=== PATIENT | female | born 1985 | race Caucasian/White ===

== ENCOUNTER → 2016-11-12 | Outpatient (REF) ==
[~2016-11-12] MED LIST: IBU600 MG PO; MOTRIN 600600 MG/TAB PO; PERCOCET 325 MG1 TA2 PO; PRENATAL1 TA1 PO; SYNTHROID0.088 MG/T PO; SYNTHROID0.1 MG/TAB; SYNTHROID0.1 MG/TAB PO
== END ==
LOC: WSOH 12:50
DX: Z23 Encounter for immunization (principal)
CPT/HCPCS: A9270-GY

== ENCOUNTER 2016-12-20 09:15 | Inpatient (IN) | payer OTHER ==
[~2016-12-20] VITALS: Ht 160 cm; Wt 80.9 kg
[~2016-12-20 09:15] MED LIST changes: -IBU600 MG PO; -SYNTHROID0.1 MG/TAB
[2017-01-02] VITALS (41 sets, daily range): BP systolic 108–156; BP diastolic 58–98; PULSE 71–126; TEMP 97.3–98
[2017-01-02] MEDS ORDERED: SYNTHROID0.1 MG/TAB (05:38)
[2017-01-02 06:07] LABS: BASO % 0.4 % (0.0-2.0); EOS # 0.1 (0.0-0.7); EOS % 1.4 % (0-4.0); GRAN # 5.6 (1.4-6.5); GRAN % 69.1 % (42.2-75.2); HEMATOCRIT 31.2 % (37.0-47.0); HEMOGLOBIN 9.7 g/dl (12.5-16.0); LYMPH # 1.8 (1.2-3.4); LYMPH % 21.9 % (20.0-51.0); MEAN CELL VOLUME 79 fl (80.0-100.0); MEAN CORPUSCULAR HEMOGLOBIN 24 pg (27.0-31.0); MEAN CORPUSCULAR HGB CONC 31 g/dl (33.0-37.0); MEAN PLATELET VOLUME 11.9 fl (7.4-10.4); MONO # 0.6 (0.1-0.6); MONO % 6.8 % (1.7-9.3); PLATELET COUNT 199 K/mm3 (130-400); RED BLOOD COUNT 3.96 M/mm3 (4.10-5.30); REDCELL DISTRIBUTION WIDTH-CV 13.8 % (11.5-14.5); WHITE BLOOD COUNT 8.1 K/mm3 (4.8-10.8)
[2017-01-03 00:40] VITALS: BP 102/58; PULSE 80; TEMP 97.5
[2017-01-03 03:55] VITALS: BP 128/80; PULSE 87; TEMP 97.9
[2017-01-03 06:45] VITALS: BP 129/81; PULSE 93; TEMP 97.7
[2017-01-03 07:26] LABS: HEMATOCRIT 32.8 % (37.0-47.0); HEMOGLOBIN 10.2 g/dl (12.5-16.0)
[2017-01-03] MEDS ORDERED: PERCOCET 325 MG1 TA2 PO (09:06)
[2017-01-03] MEDS ORDERED: IBU600 MG PO (09:06)
== END 2017-01-03 16:30 | disposition home or self-care (01) | DRG 775 ==
LOC: LDRO 09:15 → EDSTATUS 14:33 → LDR 01-01 14:36 → OB 01-02 04:55 → LDR 01-02 04:55 → OB 01-02 16:00
PROVIDERS: Obstetrics & Gynecology
PROC: 10E0XZZ Delivery of Products of Conception, External Approach (ICD-10-PCS; principal; 2017-01-02)
PROC: 0KQM0ZZ Repair Perineum Muscle, Open Approach (ICD-10-PCS; 2017-01-02)
PROC: 0UBMXZZ Excision of Vulva, External Approach (ICD-10-PCS; 2017-01-02)
PROC: 3E033VJ Introduction of Other Hormone into Peripheral Vein, Percutaneous Approach (ICD-10-PCS; 2017-01-02)
DX: O99.284 Endocrine, nutritional and metabolic diseases complicating childbirth (principal); E03.9 Hypothyroidism, unspecified; O99.824 Streptococcus B carrier state complicating childbirth; O66.0 Obstructed labor due to shoulder dystocia; O70.1 Second degree perineal laceration during delivery; O99.013 Anemia complicating pregnancy, third trimester; D64.9 Anemia, unspecified; O75.89 Other specified complications of labor and delivery; N90.7 Vulvar cyst; Z3A.39 39 weeks gestation of pregnancy; Z37.0 Single live birth
CPT/HCPCS: J0690; J2590; J2795; J7120

== ENCOUNTER → 2017-03-20 | Outpatient (REF) ==
[~2017-03-20] MED LIST changes: +IBU600 MG PO; +SYNTHROID0.1 MG/TAB
== END ==
LOC: WSOH 15:00
DX: Z02.89 Encounter for other administrative examinations (principal)
CPT/HCPCS: G0463

== ENCOUNTER → 2017-04-12 | Outpatient (REF) | LOC: WSOH 17:45 | DX: Z02.89 Encounter for other administrative examinations (principal) ==

== ENCOUNTER 2020-02-09 14:46 | Outpatient (RCR) | payer OTHER ==
[2020-02-08 16:08] VITALS: BP 130/88; PULSE 90; TEMP 98.1
[2020-02-08 17:29] LABS: HIV 1/2 Antibodies Non-Reactive; HIV-1p24 Antigen Non-Reactive
[~2020-02-09] VITALS: Ht 160 cm; Wt 72.7 kg
[2020-02-09 17:33] LABS: HEPATITIS B SURFACE ANTIGEN Negative (Negative); HEPATITIS C VIRUS ANTIBODY Negative (Negative)
== END 2020-05-09 | disposition home or self-care (01) ==
LOC: EUO
PROVIDERS: Physician Assistant
DX: Z77.21 Contact with and (suspected) exposure to potentially hazardous body fluids (principal); W46.1XXA Contact with contaminated hypodermic needle, initial encounter